=== PATIENT | female | born 1945 | race African-American/Black ===

== ENCOUNTER 2017-07-05 12:39 | Outpatient (CLI) | payer MEDICARE | END 2017-07-05 12:40 | disposition home or self-care (01) | LOC: BICMAMMO 12:39 | PROVIDERS: ATTEND Family Medicine | DX: Z12.31 Encounter for screening mammogram for malignant neoplasm of breast (principal) | CPT/HCPCS: 77063; 77067 ==

== ENCOUNTER 2018-07-07 09:04 | Outpatient (CLI) | payer MEDICARE | END 2018-07-07 09:05 | disposition home or self-care (01) | LOC: BICMAMMO 09:04 | PROVIDERS: ATTEND Family Medicine | DX: Z12.31 Encounter for screening mammogram for malignant neoplasm of breast (principal) | CPT/HCPCS: 77063; 77067 ==

== ENCOUNTER 2019-07-08 13:01 | Outpatient (CLI) | payer MEDICARE ==
--- NOTE | 2019-07-08 13:40 | MMO ---
Bilateral MAMMO Bilat Screen [facility]. CLINICAL HISTORY: Patient is 73 years old and is seen for screening. The patient has no family history of breast cancer. The patient has no personal history of cancer. The patient has a history of left Excisional Biopsy at age 38 - Benign. VIEWS: The views performed were: bilateral craniocaudal with tomosynthesis and bilateral mediolateral oblique with tomosynthesis. FILMS COMPARED: The present examination has been compared to prior imaging studies performed at [facility] on 06/29/2015, 07/02/2016, 07/05/2017 and 07/07/2018. This study has been interpreted with the assistance of computer-aided detection. MAMMOGRAM FINDINGS: There are scattered fibroglandular densities. There are stable benign appearing calcifications seen in both breasts. There are also vascular calcifications. Nodularity is stable. There are no suspicious masses, suspicious calcifications, or new areas of architectural distortion. IMPRESSION: THERE IS NO MAMMOGRAPHIC EVIDENCE OF MALIGNANCY. A ROUTINE FOLLOW-UP MAMMOGRAM IN 1 YEAR IS RECOMMENDED. THE RESULTS OF THIS EXAM WERE SENT TO THE PATIENT. ACR BI-RADS Category 2 - Benign finding MAMMOGRAPHY NOTE: 1. A negative mammogram report should not delay a biopsy if a dominant of clinically suspicious mass is present. 2. Approximately 10% to 15% of breast cancers are not detected by mammography. 3. Adenosis and dense breasts may obscure an underlying neoplasm. Reported by: FELIPE ISLAS MD Electonically Signed: [id number]
== END 2019-07-08 13:02 | disposition home or self-care (01) ==
LOC: BICMAMMO 13:01
PROVIDERS: ATTEND Family Medicine
DX: Z12.31 Encounter for screening mammogram for malignant neoplasm of breast (principal); Z91.89 Other specified personal risk factors, not elsewhere classified
CPT/HCPCS: 77063; 77067

== ENCOUNTER 2020-07-12 10:03 | Outpatient (CLI) | payer MEDICARE ==
--- NOTE | 2020-07-12 10:45 | MMO ---
Bilateral MAMMO Bilat Screen [facility]. CLINICAL HISTORY: Patient is 74 years old and is seen for screening. The patient has no family history of breast cancer. The patient has no personal history of cancer. The patient has a history of left Excisional Biopsy at age 38 - Benign. VIEWS: The views performed were: bilateral craniocaudal with tomosynthesis and bilateral mediolateral oblique with tomosynthesis. FILMS COMPARED: The present examination has been compared to prior imaging studies performed at [facility] on 07/02/2016, 07/05/2017, 07/07/2018 and 07/08/2019. This study has been interpreted with the assistance of computer-aided detection. MAMMOGRAM FINDINGS: There are scattered fibroglandular densities. There are stable benign appearing calcifications seen in both breasts. There are also vascular calcifications. Nodularity is stable. There are no suspicious masses, suspicious calcifications, or new areas of architectural distortion. IMPRESSION: THERE IS NO MAMMOGRAPHIC EVIDENCE OF MALIGNANCY. A ROUTINE FOLLOW-UP MAMMOGRAM IN 1 YEAR IS RECOMMENDED. THE RESULTS OF THIS EXAM WERE SENT TO THE PATIENT. ACR BI-RADS Category 2 - Benign finding MAMMOGRAPHY NOTE: 1. A negative mammogram report should not delay a biopsy if a dominant of clinically suspicious mass is present. 2. Approximately 10% to 15% of breast cancers are not detected by mammography. 3. Adenosis and dense breasts may obscure an underlying neoplasm. Reported by: FELIPE ISLAS MD Electonically Signed: [id number]
== END 2020-07-12 10:04 | disposition home or self-care (01) ==
LOC: BICMAMMO 10:03
PROVIDERS: ATTEND Family Medicine
DX: Z12.31 Encounter for screening mammogram for malignant neoplasm of breast (principal)
CPT/HCPCS: 77063; 77067

== ENCOUNTER 2021-02-14 10:42 | Outpatient (CLI) | payer MEDICARE | END 2021-02-14 10:43 | disposition home or self-care (01) | LOC: BICMAMMO 10:42 | PROVIDERS: ATTEND Family Medicine | DX: Z13.820 Encounter for screening for osteoporosis (principal); Z78.0 Asymptomatic menopausal state | CPT/HCPCS: 77080 ==

== ENCOUNTER 2021-07-14 10:03 | Outpatient (CLI) | payer MEDICARE | END 2021-07-14 10:04 | disposition home or self-care (01) | LOC: BICMAMMO 10:03 | PROVIDERS: ATTEND Family Medicine | DX: Z12.31 Encounter for screening mammogram for malignant neoplasm of breast (principal); Z91.89 Other specified personal risk factors, not elsewhere classified | CPT/HCPCS: 77063; 77067 ==

== ENCOUNTER 2022-07-25 12:47 | Outpatient (CLI) | payer MEDICARE | END 2022-07-25 12:48 | disposition home or self-care (01) | LOC: BICMAMMO 12:47 | PROVIDERS: ATTEND Family Medicine | DX: Z12.31 Encounter for screening mammogram for malignant neoplasm of breast (principal); Z91.89 Other specified personal risk factors, not elsewhere classified | CPT/HCPCS: 77063; 77067 ==

== ENCOUNTER 2023-07-28 19:35 | Emergency (ER) | payer MEDICARE ==
[2023-07-28] MEDS ORDERED: Acetaminophen 500 MG TAB ONE (22:03)
== END 2023-07-28 23:20 | disposition home or self-care (01) ==
LOC: ERS 19:35
DX: M79.604 Pain in right leg (principal); E78.5 Hyperlipidemia, unspecified; I10 Essential (primary) hypertension; Z79.82 Long term (current) use of aspirin; Z79.899 Other long term (current) drug therapy

== ENCOUNTER 2025-03-05 19:37 | Inpatient (IN) | payer MEDICARE ==
[~2025-03-05 19:37] MED LIST: Iopamidol-370 76% 500 ML MDV (1 ML CHARGE) ONE
[2025-03-05 20:17] LABS: #Basophils Less than 0.03 10x3/uL (0.0-0.2); #Eosinophils 0.04 10x3/uL (0.0-0.7); #Monocytes 1.33 10x3/uL (0.11-0.59); #Neutrophils 7.97 10x3/uL (1.40-6.50); %Basophils 0.2 % (0.0-1.0); %Eosinophils 0.3 % (0.0-10.0); %Lymphocytes 21.7 % (21.0-51.0); %Monocytes 11.1 % (0.0-10.0); %Neutrophils 66.4 % (42.0-75.0); Hematocrit 32.6 % (36.0-47.0); Hemoglobin 10.8 g/dL (12.0-16.0); Mean Corpuscular Hemoglobin 27.5 pg (27.0-31.0); Mean Corpuscular Volume 83.0 fL (78.0-98.0); Platelet Count 297 10x3/uL (130-400); Red Blood Cell (RBC) Count 3.93 mill/uL (4.20-5.40); White Blood Cell (WBC) Count 12.01 10x3/uL (4.8-10.8)
[2025-03-05 20:32] LABS: ALT (SGPT) 89 U/L (Less than 34); AST (SGOT) 94 U/L (11-34); Albumin 3.0 g/dL (3.1-4.5); Alkaline Phosphatase 160 U/L (40-110); Anion Gap 13 mmol/L (10-20); BUN (Urea Nitrogen) 8 mg/dL (9.8-20.1); Bilirubin, Total 0.6 mg/dL (0.3-1.2); Calc. Creatinine Clearance 0 mL/min (70-130); Calcium 9.3 mg/dL (7.8-10.44); Carbon Dioxide 25 mmol/L (23-31); Chloride 100 mmol/L (98-107); Globulin 3.9 g/dL (2.4-3.5); Glucose 160 mg/dL (83-110); Magnesium 2.0 mg/dL (1.6-2.6); Potassium 4.3 mmol/L (3.5-5.1); Sodium 134 mmol/L (136-145)
[2025-03-05 20:48] LABS: Actual Bicarbonate (HCO3v) 22.0 mEq/L (22-28); Base Excess -1.2 mEq/L (-2.0 to +3.0); Calcium, Ionized (venous) 1.13 mmol/L (1.16-1.32); Chloride (VBG) 99 mmol/L (98-106); Hematocrit-VBG 34 % (36.0-47.0); Hemoglobin (Hb) 11.7 g/dL (11.7-16.1); Potassium (VBG) 4.82 mmol/L (3.70-5.30); Sodium 133 mmol/L (133-146)
[2025-03-05] MEDS ORDERED: Ondansetron PF 4 MG/2 ML Vial ONE (21:06)
[2025-03-05] MEDS ORDERED: cefTRIAXone (ROCEPHIN) 1 GM VIAL ONE (21:06)
[2025-03-05] MEDS ORDERED: diphenhydrAMINE 50 MG/ML VIAL ONE (21:13)
[2025-03-05] MEDS ORDERED: cefTRIAXone (ROCEPHIN) 2 GM VIAL ONE (21:13)
[2025-03-05] MEDS ORDERED: Famotidine/PF 20 mg/2ml Vial ONE (21:14)
[2025-03-05 22:36] LABS: Bacteria/HPF None Seen HPF (None Seen); CAUTI Indications for Culture Alt mental st,lethar; Glucose, Urine (Dipstick) Normal (Negative); Leukocyte Negative Leu/uL (Negative); Protein, Urine (Dipstick) 10 mg/dL (Neg-Trace); RBC/HPF 0-3 HPF (0-3); Specific Gravity, Urine 1.009 (1.002-1.036); WBC/HPF 0-3 HPF (0-3)
[2025-03-05 22:55] LABS: Urine Culture Reflex No No
[2025-03-06] MEDS ORDERED: Ondansetron PF 4 MG/2 ML Vial IVP PRN (00:47)
[2025-03-06] MEDS ORDERED: Furosemide 20 MG (2 mL) VIAL ONE (00:50)
[2025-03-06 02:13] VITALS: BMI 40.1
[2025-03-06 03:15] LABS: #Basophils Less than 0.03 10x3/uL (0.0-0.2); #Eosinophils Less than 0.03 10x3/uL (0.0-0.7); #Monocytes 0.25 10x3/uL (0.11-0.59); #Neutrophils 9.69 10x3/uL (1.40-6.50); %Basophils 0.1 % (0.0-1.0); %Eosinophils 0.0 % (0.0-10.0); %Lymphocytes 5.9 % (21.0-51.0); %Monocytes 2.4 % (0.0-10.0); %Neutrophils 91.1 % (42.0-75.0); Hematocrit 33.2 % (36.0-47.0); Hemoglobin 10.7 g/dL (12.0-16.0); Mean Corpuscular Hemoglobin 27.6 pg (27.0-31.0); Mean Corpuscular Volume 85.8 fL (78.0-98.0); Platelet Count 268 10x3/uL (130-400); Red Blood Cell (RBC) Count 3.87 mill/uL (4.20-5.40); White Blood Cell (WBC) Count 10.63 10x3/uL (4.8-10.8)
[2025-03-06] MEDS: Vancomycin (BATCH) 2.5 GM in Premix 1 BAG IVPB SCH (03:57)
[2025-03-06 04:00] LABS: ALT (SGPT) 77 U/L (Less than 34); AST (SGOT) 69 U/L (11-34); Albumin 2.9 g/dL (3.1-4.5); Alkaline Phosphatase 155 U/L (40-110); Anion Gap 16 mmol/L (10-20); BUN (Urea Nitrogen) 7 mg/dL (9.8-20.1); Bilirubin, Total 0.3 mg/dL (0.3-1.2); Calc. Creatinine Clearance 114 mL/min (70-130); Calcium 9.1 mg/dL (7.8-10.44); Carbon Dioxide 21 mmol/L (23-31); Chloride 102 mmol/L (98-107); Globulin 4.0 g/dL (2.4-3.5); Glucose 149 mg/dL (83-110); Potassium 4.1 mmol/L (3.5-5.1); Sodium 135 mmol/L (136-145)
[2025-03-06] MEDS: Furosemide 20 MG (2 mL) VIAL SLOW IVP SCH (05:57)
[2025-03-06 06:30] LABS: Vancomycin, Random 12.7 ug/mL (See Comment)
[2025-03-06] MEDS ORDERED: Albuterol 2.5 MG (3 mL) NEB NEB PRN (08:50)
[2025-03-06] MEDS: Rosuvastatin 5 MG TAB PO SCH (09:09)
[2025-03-06] MEDS: Spironolactone 25 MG TAB PO SCH (09:10)
[2025-03-06] MEDS: NIFEdipine XL 90 MG ER.TAB PO SCH (09:12)
[2025-03-06] MEDS: Enoxaparin 40 MG (0.4 mL) SYRINGE SC SCH (09:13)
[2025-03-06] MEDS: PNEUMOC 20-VAL CONJ-DIP CRM/PF 0.5 ML SYRINGE IM ONE (09:17)
[2025-03-06] MEDS: Vancomycin 1 GM in Premix 1 BAG IVPB SCH (12:15)
[2025-03-06] MEDS ORDERED: Vancomycin 1.25 GM / NS 250 ML VIAL-2-BAG IVPB SCH (21:00)
[2025-03-07 05:17] LABS: #Basophils 0.05 10x3/uL (0.0-0.2); #Eosinophils 0.08 10x3/uL (0.0-0.7); #Monocytes 1.12 10x3/uL (0.11-0.59); #Neutrophils 7.18 10x3/uL (1.40-6.50); %Basophils 0.5 % (0.0-1.0); %Eosinophils 0.7 % (0.0-10.0); %Lymphocytes 21.7 % (21.0-51.0); %Monocytes 10.3 % (0.0-10.0); %Neutrophils 66.3 % (42.0-75.0); Hematocrit 32.8 % (36.0-47.0); Hemoglobin 10.7 g/dL (12.0-16.0); Mean Corpuscular Hemoglobin 27.0 pg (27.0-31.0); Mean Corpuscular Volume 82.8 fL (78.0-98.0); Platelet Count 255 10x3/uL (130-400); Red Blood Cell (RBC) Count 3.96 mill/uL (4.20-5.40); White Blood Cell (WBC) Count 10.83 10x3/uL (4.8-10.8)
[2025-03-07 05:33] LABS: ALT (SGPT) 85 U/L (Less than 34); AST (SGOT) 77 U/L (11-34); Albumin 2.7 g/dL (3.1-4.5); Alkaline Phosphatase 138 U/L (40-110); Anion Gap 15 mmol/L (10-20); BUN (Urea Nitrogen) 9 mg/dL (9.8-20.1); Bilirubin, Total 0.4 mg/dL (0.3-1.2); Calc. Creatinine Clearance 120 mL/min (70-130); Calcium 9.2 mg/dL (7.8-10.44); Carbon Dioxide 28 mmol/L (23-31); Chloride 100 mmol/L (98-107); Globulin 3.8 g/dL (2.4-3.5); Glucose 114 mg/dL (83-110); Potassium 4.1 mmol/L (3.5-5.1); Sodium 139 mmol/L (136-145)
[2025-03-07 06:05] LABS: Vancomycin, Random 14.6 ug/mL (See Comment)
[2025-03-07] MEDS: Vancomycin 1.5 GM / NS 500 ML VIAL-2-BAG IVPB SCH (12:27)
[2025-03-07] MEDS: Acetaminophen 325 MG TAB PO PRN (14:54)
[2025-03-08 05:06] LABS: #Basophils Less than 0.03 10x3/uL (0.0-0.2); #Eosinophils Less than 0.03 10x3/uL (0.0-0.7); #Monocytes 1.37 10x3/uL (0.11-0.59); #Neutrophils 9.60 10x3/uL (1.40-6.50); %Basophils 0.2 % (0.0-1.0); %Eosinophils 0.1 % (0.0-10.0); %Lymphocytes 13.6 % (21.0-51.0); %Monocytes 10.7 % (0.0-10.0); %Neutrophils 74.9 % (42.0-75.0); Hematocrit 35.4 % (36.0-47.0); Hemoglobin 12.0 g/dL (12.0-16.0); Mean Corpuscular Hemoglobin 27.8 pg (27.0-31.0); Mean Corpuscular Volume 82.1 fL (78.0-98.0); Platelet Count 402 10x3/uL (130-400); Red Blood Cell (RBC) Count 4.31 mill/uL (4.20-5.40); White Blood Cell (WBC) Count 12.80 10x3/uL (4.8-10.8)
[2025-03-08 05:24] LABS: ALT (SGPT) 72 U/L (Less than 34); AST (SGOT) 60 U/L (11-34); Albumin 2.9 g/dL (3.1-4.5); Alkaline Phosphatase 137 U/L (40-110); Anion Gap 19 mmol/L (10-20); BUN (Urea Nitrogen) 9 mg/dL (9.8-20.1); Bilirubin, Total 0.5 mg/dL (0.3-1.2); Calc. Creatinine Clearance 129 mL/min (70-130); Calcium 9.4 mg/dL (7.8-10.44); Carbon Dioxide 22 mmol/L (23-31); Chloride 95 mmol/L (98-107); Globulin 4.1 g/dL (2.4-3.5); Glucose 142 mg/dL (83-110); Potassium 4.3 mmol/L (3.5-5.1); Sodium 132 mmol/L (136-145)
[2025-03-08] MEDS: Transdermal Patch Removal TOP SCH (08:58)
[2025-03-08] MEDS: Electrolyte Replacement Protocol 1 EACH FS ONE (09:04)
[2025-03-08] MEDS ORDERED: Potassium Chloride 20 MEQ in Premix 1 BAG IVPB PRN ×2 (10:30→11:15)
[2025-03-08] MEDS ORDERED: PHOS-NAK 1 PKT PACK PO PRN (11:15)
[2025-03-08] MEDS ORDERED: Magnesium 2 GM/50 ML(in water) 2 GM in Premix 1 BAG IVPB PRN (11:15)
[2025-03-09 06:01] LABS: #Basophils Less than 0.03 10x3/uL (0.0-0.2); #Eosinophils 0.03 10x3/uL (0.0-0.7); #Monocytes 1.68 10x3/uL (0.11-0.59); #Neutrophils 10.05 10x3/uL (1.40-6.50); %Basophils 0.1 % (0.0-1.0); %Eosinophils 0.2 % (0.0-10.0); %Lymphocytes 14.4 % (21.0-51.0); %Monocytes 12.1 % (0.0-10.0); %Neutrophils 72.8 % (42.0-75.0); Hematocrit 34.7 % (36.0-47.0); Hemoglobin 11.6 g/dL (12.0-16.0); Mean Corpuscular Hemoglobin 27.4 pg (27.0-31.0); Mean Corpuscular Volume 81.8 fL (78.0-98.0); Platelet Count 404 10x3/uL (130-400); Red Blood Cell (RBC) Count 4.24 mill/uL (4.20-5.40); White Blood Cell (WBC) Count 13.83 10x3/uL (4.8-10.8)
[2025-03-09 06:23] LABS: Vancomycin, Random 20.5 ug/mL (See Comment)
[2025-03-09 06:25] LABS: ALT (SGPT) 59 U/L (Less than 34); AST (SGOT) 41 U/L (11-34); Albumin 2.6 g/dL (3.1-4.5); Alkaline Phosphatase 128 U/L (40-110); Anion Gap 13 mmol/L (10-20); BUN (Urea Nitrogen) 11 mg/dL (9.8-20.1); Bilirubin, Total 0.4 mg/dL (0.3-1.2); Calc. Creatinine Clearance 119 mL/min (70-130); Calcium 9.6 mg/dL (7.8-10.44); Carbon Dioxide 30 mmol/L (23-31); Chloride 95 mmol/L (98-107); Globulin 4.1 g/dL (2.4-3.5); Glucose 106 mg/dL (83-110); Magnesium 1.7 mg/dL (1.6-2.6); Potassium 3.8 mmol/L (3.5-5.1); Sodium 134 mmol/L (136-145)
[2025-03-09] MEDS: Magnesium 2 GM/50 ML(in water) 2 GM in Premix 1 BAG IVPB PRN (10:01)
[2025-03-09] MEDS ORDERED: Cefepime 2 GM VIAL ONE (14:06)
[2025-03-09] MEDS ORDERED: fentaNYL PF 100 MCG/2 ML SYRINGE ONE (14:30)
[2025-03-09] MEDS ORDERED: Lidocaine 1% PF 5 ML VIAL ONE (14:56)
[2025-03-09] MEDS ORDERED: Rocuronium Bromide 10 MG/ML (10ML VIAL) ONE (14:56)
[2025-03-09] MEDS ORDERED: SUCCINYLCHOLINE/SOD CL,ISO/PF 200 MG/10 ML SYRINGE FS ONE (14:56)
[2025-03-09] MEDS ORDERED: PROPOFOL 200 MG/20 ML VIAL ONE (14:56)
[2025-03-09] MEDS ORDERED: SUGAMMADEX SODIUM 200 MG/2 ML VIAL ONE (15:21)
[2025-03-09 18:41] LABS: WBC/Nucleated-Auto (BF) 4525 /cu.mm
[2025-03-09 18:59] LABS: Fluid, Glucose 61 mg/dL (Not Available)
[2025-03-09 19:04] LABS: Fluid, LDH 2051 U/L (Not Available)
[2025-03-09 19:35] LABS: BF Segmented Neutrophils 86 %; Cell Count Non Hematic 3 %
[2025-03-09] MEDS: Colchicine 0.6 MG TAB PO SCH (20:44)
[2025-03-10 03:16] LABS: #Basophils Less than 0.03 10x3/uL (0.0-0.2); #Eosinophils Less than 0.03 10x3/uL (0.0-0.7); #Monocytes 0.92 10x3/uL (0.11-0.59); #Neutrophils 13.07 10x3/uL (1.40-6.50); %Basophils 0.1 % (0.0-1.0); %Eosinophils 0.0 % (0.0-10.0); %Lymphocytes 6.1 % (21.0-51.0); %Monocytes 6.1 % (0.0-10.0); %Neutrophils 87.0 % (42.0-75.0); Hematocrit 37.3 % (36.0-47.0); Hemoglobin 12.4 g/dL (12.0-16.0); Mean Corpuscular Hemoglobin 27.5 pg (27.0-31.0); Mean Corpuscular Volume 82.7 fL (78.0-98.0); Platelet Count 509 10x3/uL (130-400); Red Blood Cell (RBC) Count 4.51 mill/uL (4.20-5.40); White Blood Cell (WBC) Count 15.03 10x3/uL (4.8-10.8)
[2025-03-10 03:42] LABS: ALT (SGPT) 82 U/L (Less than 34); AST (SGOT) 75 U/L (11-34); Albumin 2.5 g/dL (3.1-4.5); Alkaline Phosphatase 136 U/L (40-110); Anion Gap 15 mmol/L (10-20); BUN (Urea Nitrogen) 17 mg/dL (9.8-20.1); Bilirubin, Total 0.3 mg/dL (0.3-1.2); Calc. Creatinine Clearance 101 mL/min (70-130); Calcium 9.3 mg/dL (7.8-10.44); Carbon Dioxide 26 mmol/L (23-31); Chloride 99 mmol/L (98-107); Globulin 3.7 g/dL (2.4-3.5); Glucose 158 mg/dL (83-110); Potassium 4.9 mmol/L (3.5-5.1); Sodium 135 mmol/L (136-145)
[2025-03-10] MEDS: Hyaluronidase, Human Recomb. 150 UNITS/ML VIAL SC SCH ×2 (06:36→09:21)
[2025-03-11 04:07] LABS: #Basophils Less than 0.03 10x3/uL (0.0-0.2); #Eosinophils 0.08 10x3/uL (0.0-0.7); #Monocytes 0.94 10x3/uL (0.11-0.59); #Neutrophils 17.26 10x3/uL (1.40-6.50); %Basophils 0.1 % (0.0-1.0); %Eosinophils 0.4 % (0.0-10.0); %Lymphocytes 7.7 % (21.0-51.0); %Monocytes 4.7 % (0.0-10.0); %Neutrophils 86.2 % (42.0-75.0); Hematocrit 33.3 % (36.0-47.0); Hemoglobin 11.1 g/dL (12.0-16.0); Mean Corpuscular Hemoglobin 27.2 pg (27.0-31.0); Mean Corpuscular Volume 81.6 fL (78.0-98.0); Platelet Count 412 10x3/uL (130-400); Red Blood Cell (RBC) Count 4.08 mill/uL (4.20-5.40); White Blood Cell (WBC) Count 20.04 10x3/uL (4.8-10.8)
[2025-03-11 04:21] LABS: Anion Gap 12 mmol/L (10-20); BUN (Urea Nitrogen) 18 mg/dL (9.8-20.1); Calc. Creatinine Clearance 86 mL/min (70-130); Calcium 9.4 mg/dL (7.8-10.44); Carbon Dioxide 30 mmol/L (23-31); Chloride 100 mmol/L (98-107); Glucose 138 mg/dL (83-110); Potassium 4.2 mmol/L (3.5-5.1); Sodium 138 mmol/L (136-145)
[2025-03-11 04:22] LABS: CRP, High Sensitivity at Bryan 9.64 mg/dL (< or = 0.5)
[2025-03-11 14:01] VITALS: BMI 39.6
[2025-03-12 03:46] LABS: #Basophils 0.03 10x3/uL (0.0-0.2); #Eosinophils Less than 0.03 10x3/uL (0.0-0.7); #Monocytes 1.22 10x3/uL (0.11-0.59); #Neutrophils 16.02 10x3/uL (1.40-6.50); %Basophils 0.2 % (0.0-1.0); %Eosinophils 0.0 % (0.0-10.0); %Lymphocytes 9.4 % (21.0-51.0); %Monocytes 6.4 % (0.0-10.0); %Neutrophils 83.3 % (42.0-75.0); Hematocrit 37.2 % (36.0-47.0); Hemoglobin 12.3 g/dL (12.0-16.0); Mean Corpuscular Hemoglobin 26.9 pg (27.0-31.0); Mean Corpuscular Volume 81.4 fL (78.0-98.0); Platelet Count 561 10x3/uL (130-400); Red Blood Cell (RBC) Count 4.57 mill/uL (4.20-5.40); White Blood Cell (WBC) Count 19.21 10x3/uL (4.8-10.8)
[2025-03-12 04:04] LABS: Vancomycin, Random 35.2 ug/mL (See Comment)
[2025-03-12 04:05] LABS: CRP, High Sensitivity at Bryan 4.73 mg/dL (< or = 0.5)
[2025-03-12 04:06] LABS: ALT (SGPT) 114 U/L (Less than 34); AST (SGOT) 79 U/L (11-34); Albumin 2.6 g/dL (3.1-4.5); Alkaline Phosphatase 119 U/L (40-110); Anion Gap 13 mmol/L (10-20); BUN (Urea Nitrogen) 20 mg/dL (9.8-20.1); Bilirubin, Total 0.3 mg/dL (0.3-1.2); Calc. Creatinine Clearance 89 mL/min (70-130); Calcium 9.5 mg/dL (7.8-10.44); Carbon Dioxide 30 mmol/L (23-31); Chloride 100 mmol/L (98-107); Globulin 3.9 g/dL (2.4-3.5); Glucose 119 mg/dL (83-110); Potassium 4.2 mmol/L (3.5-5.1); Sodium 139 mmol/L (136-145)
[2025-03-12] MEDS: Metoprolol Succinate XL 25 MG ER.TAB PO SCH (08:26)
[2025-03-12] MEDS ORDERED: Vancomycin 1 GM in Premix 1 BAG IVPB SCH (21:00)
[2025-03-13 05:06] LABS: Calc. Creatinine Clearance 61.0 mL/min (70-130)
[2025-03-13] MEDS: predniSONE 20 MG TAB PO SCH (09:04)
[2025-03-14 04:49] LABS: #Basophils Less than 0.03 10x3/uL (0.0-0.2); #Eosinophils 0.13 10x3/uL (0.0-0.7); #Monocytes 1.16 10x3/uL (0.11-0.59); #Neutrophils 6.95 10x3/uL (1.40-6.50); %Basophils 0.2 % (0.0-1.0); %Eosinophils 1.1 % (0.0-10.0); %Lymphocytes 32.1 % (21.0-51.0); %Monocytes 9.4 % (0.0-10.0); %Neutrophils 56.4 % (42.0-75.0); Hematocrit 35.0 % (36.0-47.0); Hemoglobin 11.7 g/dL (12.0-16.0); Mean Corpuscular Hemoglobin 27.0 pg (27.0-31.0); Mean Corpuscular Volume 80.6 fL (78.0-98.0); Platelet Count 397 10x3/uL (130-400); Red Blood Cell (RBC) Count 4.34 mill/uL (4.20-5.40); White Blood Cell (WBC) Count 12.31 10x3/uL (4.8-10.8)
[2025-03-14 05:09] LABS: ALT (SGPT) 62 U/L (Less than 34); AST (SGOT) 43 U/L (11-34); Albumin 2.7 g/dL (3.1-4.5); Alkaline Phosphatase 103 U/L (40-110); Bilirubin, Direct 0.1 mg/dL (0.1-0.3); Bilirubin, Total 0.4 mg/dL (0.3-1.2)
[2025-03-14] MEDS: cloNIDine 0.1 MG TAB PO PRN (14:52)
[2025-03-14] MEDS ORDERED: hydrALAZINE 20 MG/ML VIAL SLOW IVP PRN (14:59)
[2025-03-15 05:02] LABS: #Basophils Less than 0.03 10x3/uL (0.0-0.2); #Eosinophils 0.18 10x3/uL (0.0-0.7); #Monocytes 1.11 10x3/uL (0.11-0.59); #Neutrophils 9.31 10x3/uL (1.40-6.50); %Basophils 0.1 % (0.0-1.0); %Eosinophils 1.2 % (0.0-10.0); %Lymphocytes 30.9 % (21.0-51.0); %Monocytes 7.1 % (0.0-10.0); %Neutrophils 59.9 % (42.0-75.0); Hematocrit 37.7 % (36.0-47.0); Hemoglobin 12.7 g/dL (12.0-16.0); Mean Corpuscular Hemoglobin 26.7 pg (27.0-31.0); Mean Corpuscular Volume 79.4 fL (78.0-98.0); Platelet Count 290 10x3/uL (130-400); Red Blood Cell (RBC) Count 4.75 mill/uL (4.20-5.40); White Blood Cell (WBC) Count 15.54 10x3/uL (4.8-10.8)
[2025-03-15 05:24] LABS: Anion Gap 19 mmol/L (10-20); BUN (Urea Nitrogen) 25 mg/dL (9.8-20.1); Calc. Creatinine Clearance 53 mL/min (70-130); Calcium 9.5 mg/dL (7.8-10.44); Carbon Dioxide 28 mmol/L (23-31); Chloride 97 mmol/L (98-107); Glucose 82 mg/dL (83-110); Potassium 3.2 mmol/L (3.5-5.1); Sodium 141 mmol/L (136-145)
[2025-03-15 05:25] LABS: CRP, High Sensitivity at Bryan 1.84 mg/dL (< or = 0.5)
[2025-03-15 14:53] LABS: Campy jejuni + coli by PCR Negative (Negative); STEC Shiga Toxin 1+2 Negative (Negative); Salmonella spp. by PCR Negative (Negative); Shigella spp + EIEC by PCR Negative (Negative)
[2025-03-15 16:19] VITALS: BP 156/74; TEMP 98.3
== END 2025-03-15 19:00 | disposition home or self-care (01) | DRG 270 ==
LOC: ERS 19:37 → IMCU/EMU 03-06 00:47 → 2NO 03-12 17:17
PROVIDERS: ADMIT Internal Medicine; ATTEND Family Medicine
PROC: 3E03329 Introduction of Other Anti-infective into Peripheral Vein, Percutaneous Approach (ICD-10-PCS; 2025-03-06)
PROC: 0W9D0ZZ Drainage of Pericardial Cavity, Open Approach (ICD-10-PCS; principal; 2025-03-09)
PROC: 02BN0ZX Excision of Pericardium, Open Approach, Diagnostic (ICD-10-PCS; 2025-03-09)
DX: I31.9 Disease of pericardium, unspecified (principal); J96.01 Acute respiratory failure with hypoxia; I97.191 Other postprocedural cardiac functional disturbances following other surgery; R65.10 Systemic inflammatory response syndrome (SIRS) of non-infectious origin without acute organ dysfunction; I31.39 Other pericardial effusion (noninflammatory); I10 Essential (primary) hypertension; E78.5 Hyperlipidemia, unspecified; M06.9 Rheumatoid arthritis, unspecified; Z98.890 Other specified postprocedural states; Z87.891 Personal history of nicotine dependence; Z88.5 Allergy status to narcotic agent; Z88.8 Allergy status to other drugs, medicaments and biological substances; R50.9 Fever, unspecified; Z79.899 Other long term (current) drug therapy; I31.4 Cardiac tamponade; R74.01 Elevation of levels of liver transaminase levels; D72.829 Elevated white blood cell count, unspecified; Z79.82 Long term (current) use of aspirin
CPT/HCPCS: 36415; 36416; 71045; 71275; 76705; 80048; 80053; 80076; 80202; 81001; 82042; 82565; 82805; 82945; 83605; 83615; 83735; 83880; 84100; 84145; 84484; 85025; 85060; 85379; 86141; 86850; 86900; 86901; 87040; 87077; 87086; 87149; 87324; 87428; 87449; 87505; 88112; 88305; 89051; 90471; 90677; 93005; 93010; 93306; 96365; 96366; 96368; 96375; G0009; J0169; J0282; J0665; J0692; J0696; J1100; J1200; J1308; J1650; J1940; J2405; J2704; J2919; J3373; J3473; J3475; J7030; J7070; J7512; Q9967